=== PATIENT | female | born 1945 | race Two or more races ===

== ENCOUNTER 2018-05-25 19:05 | Emergency (ER) | payer OTHER ==
[~2018-05-25] VITALS: Ht 162.6 cm; Wt 59.0 kg
[2018-05-25 20:17] LABS: Basophils # (auto) 0 uL; Basophils % (auto) 0.7 % (0.0-2.0); Eosinophils # (auto) 0.1 uL; Eosinophils % (auto) 1.9 % (0.0-7.0); Hematocrit 33.7 % (36.0-46.0); Hemoglobin 11.4 g/dL (12.2-16.2); Lymphocytes # (auto) 1.3 uL; Lymphocytes % (auto) 18.4 % (10.0-50.0); Mean Corpuscular Hemoglobin 33.6 pg (28.0-32.0); Mean Corpuscular Hgb Conc. 33.9 g/dL (32.0-36.0); Mean Corpuscular Volume 99.2 fL (80.0-100.0); Monocytes # (auto) 0.4 uL; Monocytes % (auto) 5.7 % (0.0-12.0); Neutrophils # (auto) 5.2 uL; Neutrophils % (auto) 73.3 % (37.0-80.0); Platelet Count (auto) 162 10^3/uL (140-450); Red Cell Distribution Width 13.2 % (11.8-14.3); White Blood Cell 7.1 10^3/uL (4.4-10.8)
[2018-05-25 20:35] LABS: Albumin 3.1 g/dL (3.4-5.0); Anion Gap 11 (5-15); Blood Urea Nitrogen 16 mg/dL (7-18); Calcium 7.4 mg/dL (8.5-10.1); Carbon Dioxide 19 mmol/L (21-32); Chloride 112 mmol/L (98-107); Glucose 129 mg/dL (74-106); Magnesium 2.2 mg/dL (1.6-2.6); Potassium 3.5 mmol/L (3.5-5.1); Sodium 142 mmol/L (136-145)
[2018-05-25 20:38] LABS: Alanine Aminotransferase 42 U/L (13-56); Aspartate Aminotransferase 36 U/L (15-37); BUN/Creatinine Ratio 14.2; GFR African American 60 mL/min; GFR Non-African American 50 mL/min
[2018-05-25 20:43] LABS: Alkaline Phosphatase 98 U/L (45-117); Bilirubin, Total 0.8 mg/dL (0.2-1.0); Total Protein 6.7 g/dL (6.4-8.2)
[2018-05-25 21:10] LABS: Urine Bacteria MOD /hpf (None Seen); Urine Blood 1+ /uL (Negative); Urine Hyaline Cast MOD /lpf (0 - 2); Urine Mucus FEW (None Seen); Urine Specific Gravity 1.014 (1.001-1.035); Urine WBC 16 /hpf (0 - 5)
[2018-05-25] MEDS ORDERED: cefTRIAXone 1GM/10ml IVPUSH 10 ML IV ONE ×2 (21:30→21:49)
[2018-05-25] MEDS ORDERED: SODIUM CHLORIDE 0.9% 1,000 ML IV ONE (21:30)
[2018-05-25] MEDS ORDERED: CALCIUM GLUC 4.65meq/50ml D5AE 50 ML IV ONE ×2 (21:45→21:49)
[2018-05-25 22:34] VITALS: BP 134/61
== END 2018-05-25 23:21 | disposition home or self-care (01) ==
LOC: EDBD 19:05 → ER 19:05 → EDSEX 19:05 → ER 23:21
DX: E86.0 Dehydration (principal); E83.51 Hypocalcemia; N39.0 Urinary tract infection, site not specified; R55 Syncope and collapse; I48.91 Unspecified atrial fibrillation; R42 Dizziness and giddiness; Z96.89 Presence of other specified functional implants
CPT/HCPCS: 36415; 71045; 80053; 81001; 83735; 83880; 84484; 85025; 96361; 96365; 96375; 99285; J0610; J7030; 93005